=== PATIENT | male | born 1965 | race Hispanic/Latino ===

== ENCOUNTER → 2020-05-23 | Outpatient (CLI) | payer BC ==
[~2020-05-23] MED LIST: FLEXERIL10 MG PO; NORCO 5-325 TA1 EACH PO
--- NOTE | 2020-05-23 15:06 | Diagnostic Imaging Report ---
MRI SPINE CERVICAL WO HISTORY: Neck strain, right arm pain COMPARISON: None. TECHNIQUE: Sagittal T1, sagittal T2, sagittal inversion recovery, axial T2 and axial T1 weighted MR images of the cervical spine were obtained without intravenous contrast. Motion artifacts obscure some details. DISCUSSION: Alignment: Slight reversal of the cervical lordosis. No scoliosis. Vertebrae: Nodular T1/T2 hyperintense lesion in the C7 vertebral body is a benign hemangioma. Otherwise, no definite evidence for fractures, infection, or neoplasm. Cervicomedullary junction: No abnormalities. Spinal cord: The ventral cord and dorsal cord are mildly indented by disc and ligamentum flavum thickening at C3-C4, respectively. The ventral cord is also mildly flattened by disc at C4-C5, C5-C6, and C6-C7. The cord is otherwise normal in signal and morphology from the foramen magnum through T3. Soft tissues: Small nodular T2 hyperintense cutaneous lesion in the right upper posterior neck and the correlated with physical exam. Moderate multilevel disc degeneration is most prominent from C4-C5 to C6-C7. C2-C3: Patent canal and foramina. C3-C4: Moderate canal stenosis due to posterior disc osteophyte complex and ligamentum flavum thickening. Moderate to severe right and mild left foraminal stenoses due to uncovertebral and facet arthrosis. There is mild periarticular edema along the right C3-C4 facet joint. C4-C5: Minimal grade 1 anterolisthesis of C4 on C5 is due to facet arthrosis. Moderate canal stenosis due to posterior disc osteophyte complex and ligamentum flavum thickening. Mild to moderate right and mild left foraminal stenoses due to uncovertebral and facet arthrosis. C5-C6: Moderate canal stenosis due to posterior disc osteophyte complex and ligamentum flavum thickening. Mild bilateral foraminal stenoses due to uncovertebral and facet arthrosis. C6-C7: Mild canal stenosis due to posterior disc osteophyte complex and ligamentum flavum thickening. Moderate bilateral foraminal stenoses due to uncovertebral and facet arthrosis. C7-T1: Moderate left foraminal stenosis due to disc bulge and facet arthrosis. No significant canal or right foraminal stenosis. IMPRESSION: 1. Moderate multilevel disc degeneration is most prominent from C4-C5 to C6-C7. 2. Moderate degenerative canal stenosis from C3-C4 to C5-C6. 3. Multilevel degenerative foraminal stenoses - moderate to severe on the right at C3-C4; moderate bilaterally at C6-C7; moderate on the left at C7-T1. 4. Right C3-C4 facet synovitis. Signed by: Dr. Calvin Ashby M.D. on 05/23/2020 3:03 PM
== END ==
LOC: MRI 13:22
PROVIDERS: ATTEND Family Medicine
DX: M47.812 Spondylosis without myelopathy or radiculopathy, cervical region (principal); S16.1XXA Strain of muscle, fascia and tendon at neck level, initial encounter; M50.30 Other cervical disc degeneration, unspecified cervical region; R20.2 Paresthesia of skin
CPT/HCPCS: 72141